=== PATIENT | female | born 1970 | race Caucasian/White ===

== ENCOUNTER → 2020-02-29 10:40 | Outpatient (CLI) | payer OTHER, SELFPAY ==
[2020-02-29 12:39] LABS: Absolute Lymphocyte Count 2.56 X10^3/uL (0.83-4.51); Absolute Neutrophil Count 4.3 X10^3/uL (2.0-7.7); Basophil# 0.05 X10^3/uL; Basophil% 0.7 % (0-1); Eosinophil# 0.18 X10^3/uL; Eosinophils% 2.3 % (0-5); Hematocrit 39.4 % (37-47); Hemoglobin 12.9 g/dL (12.0-15.0); Lymphocyte # 2.56 X10^3/ul (4.0); Lymphocyte % 33.4 % (19-41); Mean Corp Hgb Conc 32.7 g/dL (32-36); Mean Corpuscular Hgb 31.1 pg (27.0-32.0); Mean Corpuscular Volume 94.9 fL (81-99); Mean Platelet Vol. 11.3 fl (6.2-12.0); Monocyte# 0.61 X10^3/uL; NRBC Flagged by Analyzer 0 % (0-5); Neutrophil # 4.25 X10^3/uL (2.7-7.7); Neutrophil % 55.3 % (47-70); Platelet Count 285 K/mm3 (150-450); RBC Distribution Width CV 12.9 % (11.6-14.6); RBC Distribution Width SD 44.7 fl (35.1-43.9); Red Blood Count 4.15 M/mm3 (4.2-5.4); White Blood Count 7.7 K/mm3 (4.4-11.0)
[2020-02-29 13:06] LABS: ALB/GLOB Ratio 1.1 RATIO (0.9-2.4); AST(SGOT) 18 U/L (15-37); Alanine Aminotransfer ALT/SGPT 19 U/L (13-56); Albumin, Serum 3.9 g/dL (3.2-5.0); Alkaline Phosphatase 78 U/L (45-117); Anion Gap 1 (5-15); BUN 15 mg/dL (7-18); BUN/Creat Ratio 22.9 RATIO (10-20); Calcium,Total 9.4 mg/dL (8.5-10.1); Chloride 109 mmol/L (98-107); Cholesterol 181 mg/dL (200); Creatinine, Serum 0.66 mg/dL (0.55-1.02); EST Glomerular Filtration Rate 101 mL/min (>60); Est Glom Filt Rate - Afr Amer 122 mL/min (>60); Free T3 2.4 pg/mL (2.18-3.98); Globulin 3.7 g/dL (2.2-4.2); Glucose 86 mg/dL (74-106); High Density Lipoprotein 62 mg/dL; Magnesium 2.2 mg/dL (1.6-2.6); Potassium 4.3 mmol/L (3.5-5.1); Protein, Total 7.6 g/dL (6.4-8.2); Sodium Level 140 mmol/L (136-145); T4 Free Direct 0.92 ng/dL (0.76-1.46); Thyroid Stim Hormone (TSH) 1.31 uIU/mL (0.358-3.74); Triglycerides 53 mg/dL; Very Low Density Lipoprotein 11 mg/dL (5-40)
== END ==
PROVIDERS: PCP Family Medicine; Visit Provider Family Medicine
DX: Z00.00 Encounter for general adult medical examination without abnormal findings (principal); E78.5 Hyperlipidemia, unspecified
CPT/HCPCS: 36415; 80053; 80061; 83735; 84439; 84443; 84481; 85025

== ENCOUNTER → 2020-03-07 10:36 | Outpatient (CLI) | payer OTHER, SELFPAY | PROVIDERS: PCP Family Medicine; Referring Provider Family Medicine; Visit Provider Family Medicine | DX: R07.9 Chest pain, unspecified (principal); R00.2 Palpitations ==

== ENCOUNTER → 2020-03-21 06:47 | Outpatient (CLI) | payer OTHER, SELFPAY ==
--- NOTE | 2020-03-21 13:10 | STRESSREP_ITS ---
Stress Test Report Date: 03/21/20 Procedure: Pharmacologic stress nuclear imaging study Indications: [chest pain] Consent: Per the patient Procedure: The patient underwent pharmacologic (Regadenoson) evaluation with a peak heart rate of [107] beats per minute ([63]%predicted maximal heart rate) and a peak blood pressure of [142/80] mmHg. The baseline ECG demonstrated [sinus rhythm, left bundle branch block]. EKG during lexiscan infusion revealed no significant ischemic changes. EKG post infusion revealed no significant ischemic changes [There were no cardiac dysrhythmias pretest, during pharmacologic infusion, or recovery]. [There was no complaint of chest discomfort during pharmacologic infusion or recovery]. The examination was discontinued secondary to completion of protocol. Impression: 1. Lexiscan stress test test is negative for Lexiscan infusion induced EKG changes of ischemia. 2. Lexiscan stress test test[ is negative] for Lexiscan infusion induced chest pain. 3. Results of the nuclear portion of the test is as below Myocardial perfusion imaging study: Technique: The patient was injected with [11.3] millicuries of technetium 99m Cardiolite and subsequently rest SPECT Cardiolite nuclear imaging was obtained in the horizontal long, vertical long, and short axis views. The patient underwent pharmacologic (Regadenoson) evaluation. Please see above for details. The patient was injected with [33.9] millicuries of technetium 99m Cardiolite and subsequently stress SPECT Cardiolite nuclear imaging was obtained in the horizontal long, vertical long, and short axis views. A gated Cardiolite study at peak stress was obtained. Interpretation: Rest and stress SPECT Cardiolite nuclear imaging status post realignment, normalization, and attenuation correction demonstrate [normal myocardial radioisotope uptake]. Gated images reveal no significant regional wall motion abnormalities. The reported LVEF is 63%. Impression: 1. There is no evidence of significant ischemia or infarction. 2. Estimated ejection fraction is 63%. This note was generated with [employer] software. It may contain incorrect words, spelling, and punctuation that were not noted in checking the note before signing.
== END ==
PROVIDERS: PCP Family Medicine; Referring Provider Family Medicine; Visit Provider Family Medicine
DX: R00.2 Palpitations (principal); I44.7 Left bundle-branch block, unspecified; R07.9 Chest pain, unspecified
CPT/HCPCS: 78452; 93017; A9500; A4216; J2785

== ENCOUNTER → 2020-06-19 07:55 | Outpatient (CLI) | payer OTHER, SELFPAY ==
[2020-06-04 13:25] VITALS: BMI 26.8
--- NOTE | 2020-06-19 07:59 | ECHOCS_ITS ---
Reason For Study: Palpitations Procedure This was a 2D Doppler, Color Flow transthoracic echocardiogram. Contrast injection was performed. Exam performed in department. Left Ventricle Normal LV size. The estimated ejection fraction is 60 %. No evidence for diastolic dysfunction. No regional wall motion abnormalities noted. Right Ventricle Normal RV size. Normal systolic function. Atria Normal left atrium. Normal right atrium. No doppler evidence for ASD. Mitral Valve There is no mitral valve stenosis. Trivial mitral valve insufficiency. Tricuspid Valve There is no tricuspid stenosis. Trivial tricuspid valve insufficiency. Pulmonary artery systolic pressure is 25-30 mmHg. Aortic Valve Trisinus/trileaflet aortic valve. There is no aortic stenosis. No aortic valve insufficiency. Pulmonic Valve There is no pulmonic valvular stenosis. No pulmonic valve insufficiency. Great Vessels Normal aortic root. Pericardium/Pleural No pericardial effusion. Medication 22 gauge I.V. with prn adaptor inserted into right arm. Diluted definity 2ml given slow IV push to enhance endocardial definition. MMode/2D Measurements & Calculations LVIDd: 5.4 cm IVSd: 0.74 cm Ao root diam: 3.1 cm LVIDs: 3.0 cm LVPWd: 0.64 cm LA dimension: 3.6 cm RVDd: 3.0 cm FS: 44.1 % LAV(MOD-bp): 48.9 ml LA A4 area: 16.7 cm2 RA A4 area: 14.1 cm2 LAV(MOD-bp) Indexed: 27.2 ml/m2 LAV(MOD-sp2): 48.7 ml LAV(MOD-sp4): 46.6 ml Time Measurements MV dec time: 0.20 sec Doppler Measurements & Calculations MV E max javier: 101.4 cm/sec Lat Peak E' Javier: 10.7 cm/sec Med Peak E' Javier: 8.5 cm/sec MV A max javier: 71.7 cm/sec E/E' lat: 9.5 E/E' med: 11.9 MV E/A: 1.4 MV V2 max: 110.7 cm/sec MV P1/2t max javier: 111.7 cm/sec Ao V2 max: 176.2 cm/sec MV max P.9 mmHg MV P1/2t: 99.5 msec Ao max P.4 mmHg MV V2 mean: 57.2 cm/sec MV dec slope: 328.8 cm/sec2 MV mean P.6 mmHg MV V2 VTI: 38.3 cm MVA(P1/2t): 2.2 cm2 LV V1 max: 123.4 cm/sec PA V2 max: 93.4 cm/sec TR max javire: 241.1 cm/sec LV V1 max P.1 mmHg TR max P.3 mmHg Interpretation Summary The estimated ejection fraction is 60 %. No evidence for diastolic dysfunction. Trivial mitral valve insufficiency. Ordering Physician: Liza Dominguez Referring Physician: Roxanna Hennessy Performed By: Girish Lindsey RCS
== END ==
PROVIDERS: PCP Family Medicine; Referring Provider Specialist; Visit Provider Specialist
DX: I44.7 Left bundle-branch block, unspecified (principal); R00.2 Palpitations
CPT/HCPCS: 93306; Q9957; A4216; C8929

== ENCOUNTER → 2022-12-17 | Outpatient (CLI) | payer OTHER, SELFPAY ==
--- NOTE | 2022-12-17 07:01 | BI_ITS ---
MAMMOGRAPHY - BILATERAL SCREENING REASON FOR EXAM: Female, 52 years old. Routine annual screening examination. PERTINENT HISTORY: Mother with breast cancer. TECHNIQUE: Digital bilateral breast bhavya (3D mammographic acquisition) in the CC and MLO projections. 2-D mediolateral oblique (MLO) and craniocaudad (CC) views of both breasts were obtained. CAD: Full Field Digital Mammography with Computer Added Detection was performed. COMPARISON: Comparison is made with prior outside examination of November 11, 2020. FINDINGS: Breast Composition: The breasts are heterogeneously dense, which may obscure small masses. There are no dominant masses or suspicious calcifications. Stable benign-appearing right axillary lymph nodes. No other significant abnormalities are identified. There has been no significant change since the prior study. BI/SCRN MAMM (CAD)W/BHAVYA BILAT IMPRESSION: Stable bilateral screening mammogram. Yearly follow-up mammogram recommended. (A) ASSESSMENT CATEGORY: BIRADS Category 2: Benign. A letter regarding these results will be sent to the patient by the facility within 30 days. Approximately 10% of breast cancers are not detected by mammography. A normal mammogram should not delay biopsy of a clinically suspicious abnormality. [id number] Electronically Signed: Kentrell Olivas MD at 8:32 EDT ,
== END | disposition home or self-care (01) ==
LOC: OPBI 06:59
PROVIDERS: PCP Family Medicine; Referring Provider Family Medicine; Visit Provider Family Medicine
DX: Z12.31 Encounter for screening mammogram for malignant neoplasm of breast (principal); Z80.3 Family history of malignant neoplasm of breast
CPT/HCPCS: 77063; 77067

== ENCOUNTER → 2023-12-01 | Outpatient (CLI) | payer OTHER, SELFPAY ==
[2023-12-01 15:17] LABS: Absolute Lymphocyte Count 3.12 X10^3/uL (0.83-4.51); Absolute Neutrophil Count 5.3 X10^3/uL (2.0-7.7); Basophil# 0.08 X10^3/uL; Basophil% 0.9 % (0-1); Eosinophil# 0.19 X10^3/uL; Hematocrit 44.2 % (37-47); Hemoglobin 14.1 g/dL (12.0-15.0); Lymphocyte # 3.12 X10^3/ul (0.83-4.51); Lymphocyte % 33.6 % (19-41); Mean Corp Hgb Conc 31.9 g/dL (32-36); Mean Corpuscular Hgb 29.9 pg (27.0-32.0); Mean Corpuscular Volume 93.6 fL (81-99); Mean Platelet Vol. 11.5 fl (6.2-12.0); Monocyte# 0.54 X10^3/uL; Monocyte% 5.8 % (0-10); NRBC Flagged by Analyzer 0 % (0-5); Neutrophil # 5.33 X10^3/uL (2.7-7.7); Neutrophil % 57.4 % (47-70); Platelet Count 350 K/mm3 (150-450); RBC Distribution Width CV 13.4 % (11.6-14.6); RBC Distribution Width SD 46.1 fl (35.1-43.9); Red Blood Count 4.72 M/mm3 (4.2-5.4); White Blood Count 9.3 K/mm3 (4.4-11.0)
[2023-12-01 15:28] LABS: AST(SGOT) 23 U/L (15-37); Alanine Aminotransfer ALT/SGPT 31 U/L (13-56); Albumin, Serum 4.1 g/dL (3.2-5.0); Alkaline Phosphatase 92 U/L (45-117); Anion Gap 6 (5-15); BUN 14 mg/dL (7-18); BUN/Creat Ratio 16.5 RATIO (10-20); Chloride 110 mmol/L (98-107); Cholesterol 197 mg/dL (200); Creatinine, Serum 0.85 mg/dL (0.55-1.02); EST Glomerular Filtration Rate 74 mL/min (>60); Est Glom Filt Rate - Afr Amer 89 mL/min (>60); Globulin 4.1 g/dL (2.2-4.2); Glucose 90 mg/dL (74-106); High Density Lipoprotein 58 mg/dL; Potassium 4.5 mmol/L (3.5-5.1); Protein, Total 8.2 g/dL (6.4-8.2); Sodium Level 140 mmol/L (136-145); T4 Free Direct 1.09 ng/dL (0.76-1.46); Thyroid Stim Hormone (TSH) 1.48 uIU/mL (0.358-3.74); Triglycerides 146 mg/dL; Very Low Density Lipoprotein 29 mg/dL (5-40)
== END | disposition home or self-care (01) ==
LOC: BFHLAB 13:08
PROVIDERS: PCP Family Medicine; Referring Provider Family Medicine; Visit Provider Family Medicine
DX: Z00.00 Encounter for general adult medical examination without abnormal findings (principal); E78.5 Hyperlipidemia, unspecified
CPT/HCPCS: 80053; 80061; 84439; 84443; 85025

== ENCOUNTER 2024-01-16 21:33 | Inpatient (IN) | payer OTHER, SELFPAY ==
[2024-01-16 21:33] VITALS: BP 131/116; PULSE 150; RESP 22; TEMP 36.1; O2SAT 95; BMI 26.4
--- NOTE | 2024-01-16 21:47 | EKG12_ITS ---
Test Reason : DYSRHYTHMIA Blood Pressure : / mmHG Vent. Rate : 152 BPM Atrial Rate : 152 BPM P-R Int : 096 ms QRS Dur : 132 ms QT Int : 290 ms P-R-T Axes : 088 042 179 degrees QTc Int : 461 ms Critical Test Result: High HR Atrial flutter 2:1 Left ventricular hypertrophy with QRS widening and repolarization abnormality ( [place] product ) Cannot rule out Septal infarct , age undetermined Abnormal ECG Confirmed by NILSA CHAPPELL, DOMINGO ([id number]), development editor GABRIEL VALERO ([id number]) on 01/17/2024 10:08:39 AM Referred By: DELFINA Confirmed By:DOMINGO ASH MD
[2024-01-16] MEDS: Metoprolol Tartrate 5 MG/5 ML Vial IV ×2 (21:54→22:41)
[2024-01-16] MEDS: Ondansetron 4 MG/2 ML Vial IV (21:55)
[2024-01-16] MEDS: 0.9% Normal Saline (1000mL) 1,000 ML 1000 ML IV (21:55)
[2024-01-16 21:56] LABS: Absolute Lymphocyte Count 2.85 X10^3/uL (0.83-4.51); Absolute Neutrophil Count 6.7 X10^3/uL (2.0-7.7); Basophil# 0.07 X10^3/uL; Basophil% 0.7 % (0-1); Hematocrit 42.2 % (37-47); Hemoglobin 13.6 g/dL (12.0-15.0); Lymphocyte # 2.85 X10^3/ul (0.83-4.51); Lymphocyte % 28.2 % (19-41); Mean Corp Hgb Conc 32.2 g/dL (32-36); Mean Corpuscular Hgb 30.6 pg (27.0-32.0); Mean Corpuscular Volume 94.8 fL (81-99); Mean Platelet Vol. 10.8 fl (6.2-12.0); Monocyte# 0.38 X10^3/uL; Monocyte% 3.8 % (0-10); NRBC Flagged by Analyzer 0 % (0-5); Neutrophil # 6.68 X10^3/uL (2.7-7.7); Platelet Count 296 K/mm3 (150-450); RBC Distribution Width CV 14.4 % (11.6-14.6); RBC Distribution Width SD 49.7 fl (35.1-43.9); Red Blood Count 4.45 M/mm3 (4.2-5.4); White Blood Count 10.1 K/mm3 (4.4-11.0)
--- NOTE | 2024-01-16 22:03 | EX.ED.DYSGE1 ---
HPI History of Present Illness Chief Complaint: Palpitations Narrative Narrative: 53-year-old female past medical history of left bundle branch block and previous palpitations of unknown origin presents with multiple somatic complaints. She states that she has had a dry cough for at least a month. It has turned to today she is experiencing multiple episodes of posttussive emesis. She states that time she feels nauseated. She denies any chest pain, but becomes short of breath when she is coughing or into coughing jags. On occasion, she has a headache as well. She took an antitussive at around noon, 10 hours ago, and later on this evening at around 6, started feeling heart palpitations and a fast, pounding heart rate. [facility] Medical History (Updated 01/17/24 @ 00:12 by Tim Rose MD) Left bundle branch block (LBBB) Palpitations Home Medications ?Medication ?Instructions ?Recorded ?Last Taken ?Type NK 06/04/20 Unknown History Allergy/AdvReac Type Severity Reaction Status Date / Time No Known Allergies Allergy Verified 01/16/24 21:35 Family History Mother Breast cancer Father Myocardial infarction, Onset Age: 45 Sarcoidosis Brother Atrial fibrillation Surgical History History of section Social History Smoking Status: Never smoker alcohol intake: current alcohol intake frequency: a few times a month substance use type: does not use caffeine: Yes Type: coffee ROS ROS ED ROS Narrative Constitutional: No fever, no chills. HEENT: No sore throat. No neck pain. No loss of vision. No rhinorrhea. Cardiovascular: No chest pain. Positive palpitations. No pedal edema. Respiratory: 1 month of dry cough, occasional shortness of breath. Abdominal: No abdominal pain. Positive nausea. Posttussive emesis Genitourinary: No dysuria. No hematuria. Musculoskeletal: No myalgias. No arthralgias. Neurologic: Positive headaches. No dizziness. No lightheadedness. Skin: No rash. No change in color. Psychiatric: No depression. No anxiety. EXAM Physical Exam Narrative Exam Narrative: Afebrile. Vital signs noted. HEENT: Normocephalic. Atraumatic. PERRL, EOMI. Neck soft and supple. No point tenderness or step off. Cardiovascular: Positive tachycardia at around 150 bpm no murmurs, rubs, or gallops appreciated. Respiratory: Positive tachypnea. Lungs clear to auscultation bilaterally. Dry cough on examination. Gastrointestinal: Abdomen soft, nontender, with normoactive bowel sounds. No rebound or guarding. Neurological: Awake. Alert. Nonfocal, nonlateralizing. Skin: No rash. Normal color. No pallor. Musculoskeletal: No pedal edema. Full range of motion extremities. Const Vital Signs: 01/16/24 21:33 01/16/24 21:40 01/16/24 22:32 Temperature 97 F L 98.4 F Temperature Source Temporal Oral Pulse Rate 150 H 139 H Respiratory Rate 22 H 30 H Respiratory Effort Normal Non-Labored Blood Pressure 131/116 H 120/93 H Blood Pressure Mean 121 102 Pulse Ox 95 91 Oxygen Delivery Method Room Air Room Air Oxygen Flow Rate (L/min) 01/16/24 23:00 01/17/24 00:00 Temperature 97.8 F Temperature Source Oral Pulse Rate 137 H 135 H Respiratory Rate 27 H 24 H Respiratory Effort Blood Pressure 93/36 L 109/86 H Blood Pressure Mean 55 93 Pulse Ox 97 95 Oxygen Delivery Method Nasal Cannula Nasal Cannula Oxygen Flow Rate (L/min) 2 2 MDM MDM MDM Narrative Medical decision making narrative: The differential diagnosis is pulmonary embolism versus pneumonia versus atrial fibrillation. EKG obtained and interpreted by myself independently shows a left bundle branch block which is a wide-complex tachycardia at 152 bpm, no acute ST changes. There is a possibility that this could be atrial fibrillation/flutter. I reviewed her prior records, and her outpatient record as well. She has been seen by cardiology for follow-up with palpitations but was never diagnosed with atrial fibrillation. She had intermittent palpitations of unknown etiology in the past with longstanding left bundle branch block. She will be administered Lopressor and attempt to slow her rate. Comprehensive workup was pursued. I reviewed her laboratory work and she has normal white count of 10.1, hemoglobin 13.6, hematocrit 42.2, platelet count 296. Her D-dimer is elevated at 1.42. Hence, to limit radiation, I did not obtain a chest x-ray, but ordered a CTA of the chest in order to rule out pulmonary embolism. Her sodium is slightly low at 135, potassium 4.1, BUN of 20 with creatinine 0.93. Glucose is appropriately elevated at 130 with a normal anion gap of 8, AST slightly elevated at 46 which I think is nonspecific. Initial high-sensitivity troponin is 49. Initially, she was receiving a fluid bolus because of the CTA, but her BNP has returned at 1011. Urinalysis is negative for infection with 0-5 WBCs. I did order to 5 mg boluses of Lopressor, this seemed to drop her pressure transiently into the 90s and only lowered her heart rate into the 130s. Intermittently, she would drop her pulse ox as well. She was placed on 2 L nasal cannula. When she first arrived she wanted something for her cough and so she was administered Robitussin DM. She is having posttussive emesis and will continue to have a dry cough then vomited. I do not feel that Zofran would be effective for her nausea and vomiting because it is more posttussive than anything else. I reviewed the radiology report of the CTA which shows no evidence of pulmonary embolism. There are small bilateral pleural effusions and it is most consistent with pulmonary edema. Given her continued tachycardia and history of left bundle branch block, I discussed patient with Dr. Dominguez. He would like the patient placed on an amiodarone drip as Cardizem would tend to lower her blood pressure as well. I will add blood cultures and a lactic acid although she is not really flagging for sepsis currently. I will discuss patient with Dr. Anderson for admission. History & Record Review Discussion w/independent historian: Patient and Family Lab Data Attestation: I reviewed the patient's lab results. Labs: Laboratory Results - last 24 hr 01/16/24 01/16/24 01/16/24 21:45 22:43 23:45 WBC 10.1 RBC 4.45 Hgb 13.6 Hct 42.2 MCV 94.8 MCH 30.6 MCHC 32.2 RDW Std Deviation 49.7 H RDW Coeff of Sona 14.4 Plt Count 296 MPV 10.8 Immature Gran % (Auto) 0.300 Neut % (Auto) 66.0 Lymph % (Auto) 28.2 [place] % (Auto) 3.8 Eos % (Auto) 1.0 Baso % (Auto) 0.7 Absolute Neuts (auto) 6.7 Absolute Lymphs (auto) 2.85 Nucleated RBC % 0 D-Dimer Quant (PE/DVT) 1.42 H* Sodium 135 L Potassium 4.1 Chloride 106 Carbon Dioxide 21.0 Anion Gap 8 BUN 20 H Creatinine 0.93 Estim Creat Clear Calc 67.93 Est GFR (MDRD) Af Amer 81 Est GFR (MDRD) Non-Af 67 BUN/Creatinine Ratio 21.6 H Glucose 130 H Calcium 9.5 Total Bilirubin 1.20 H AST 46 H ALT 43 Alkaline Phosphatase 92 Troponin I High Sens 49 44 B-Natriuretic Peptide 1011.8 H Total Protein 7.4 Albumin 3.9 Globulin 3.5 Albumin/Globulin Ratio 1.1 Lipase 30 Urine Color Yellow Urine Clarity Sl. Cloudy Urine pH 5.0 Ur Specific [place] 1.030 Urine Protein 100 H Urine Glucose (UA) Normal Urine Ketones 50 H Urine Occult Blood 10 H Urine Nitrite Negative Urine Bilirubin 1 H Urine Urobilinogen 4 H Ur Leukocyte Esterase 25 H Urine RBC 0 SEEN Urine WBC 0-5 SEEN Ur Squamous Epith Cells 0 SEEN Urine Bacteria 2+ Hyaline Casts 5-10 SEEN Urine Mucus 1+ Radiography Diagnostic Testing: Clinical Impression(s) from Imaging Studies Chest CTA 01/16/24 22:43 IMPRESSION: No pulmonary embolism. Appearance most suggestive of edema. Small pleural effusions. Electronically Signed: Vito Vergara MD at 23:44 EDT Reading Location ID and State: [address] [place] [address] Tel , Service support , Discharge Plan Dx/Rx/DC Orders Clinical Impression: Bilateral pleural effusion, Left bundle branch block (LBBB), Atrial fibrillation with RVR, CHF (congestive heart failure), Post-tussive emesis Disposition Disposition: Acute Care Hospital [facility]
[2024-01-16 22:16] LABS: ALB/GLOB Ratio 1.1 RATIO (0.9-2.4); AST(SGOT) 46 U/L (15-37); Alanine Aminotransfer ALT/SGPT 43 U/L (13-56); Albumin, Serum 3.9 g/dL (3.2-5.0); Alkaline Phosphatase 92 U/L (45-117); Anion Gap 8 (5-15); BUN 20 mg/dL (7-18); BUN/Creat Ratio 21.6 RATIO (10-20); Calcium,Total 9.5 mg/dL (8.5-10.1); Chloride 106 mmol/L (98-107); Creatinine, Serum 0.93 mg/dL (0.55-1.02); EST Glomerular Filtration Rate 67 mL/min (>60); Est Glom Filt Rate - Afr Amer 81 mL/min (>60); Estimated Creatinine Clearance 67.93 ml/min; Globulin 3.5 g/dL (2.2-4.2); Glucose 130 mg/dL (74-106); Lipase 30 U/L (13-75); Potassium 4.1 mmol/L (3.5-5.1); Protein, Total 7.4 g/dL (6.4-8.2); Sodium Level 135 mmol/L (136-145); Troponin-I HS (w/2H Reflex) 49 pg/mL (3.0-54.0)
[2024-01-16 22:19] LABS: BNP,B-Type NATRIURETIC PEPTIDE 1011.8 pg/mL (0-100)
[2024-01-16] MEDS: guaiFENesin Dm 10 ML UDC PO (22:26)
[2024-01-16 22:32] VITALS: BP 120/93; PULSE 139; RESP 30; TEMP 36.9; O2SAT 91
[2024-01-16 22:42] LABS: D-Dimer Quantitative (DVT/PE) 1.42 FEU/ug/m (0.27-0.49)
--- NOTE | 2024-01-16 22:43 | CT_ITS ---
STUDY: CTA CHEST REASON FOR EXAM: Female, 53 years old. Elevated D-dimer RADIATION DOSAGE (If Supplied By Facility): CTDIvol = ( 9.26 ) mGy, DLP = ( 267.89 ) mGycm TECHNIQUE: The examination was performed with the intravenous administration of IV 100mL Isovue-370. Post-processing of the angiographic images was performed, with multiplanar reformation and 3D reconstruction. Individualized dose optimization techniques were used for this CT. COMPARISON: No relevant prior comparison study available FINDINGS: PULMONARY ARTERIES: Normal enhancement of the main pulmonary artery and right and left pulmonary arteries. Normal enhancement of the bilateral peripheral pulmonary arteries. There is no demonstrated pulmonary embolism. AORTA: Normal thoracic aorta and visualized great vessels. There is no demonstrated aortic dissection. MEDIASTINUM: Enlarged heart. No pericardial effusion. No mediastinal lymphadenopathy. Normal hilar regions. LUNGS/PLEURA: The central airways are patent. Diffuse bronchial wall thickening. Mild septal thickening at the lower lungs. No dense consolidation. No pulmonary nodule. Small bilateral pleural effusions. No pneumothorax. CHEST WALL: Normal chest wall structures. UPPER ABDOMEN: Normal visualized upper abdomen. OSSEOUS STRUCTURES: No acute or suspicious osseous abnormality. Mild degenerative changes of the spine. CT/CTA Chest W/WO Contrast IMPRESSION: No pulmonary embolism. Appearance most suggestive of edema. Small pleural effusions. Electronically Signed: Vito Vergara MD at 23:44 EDT ,
[2024-01-16 23:00] VITALS: BP 93/36; PULSE 137; RESP 27; TEMP 36.6; O2SAT 97
[2024-01-16 23:01] LABS: Red Blood Cells-Urine 0 SEEN /hpf (0-5); Squamous Epithelial Cells - UA 0 SEEN /hpf (5-10)
[2024-01-16 23:03] LABS: Color, Urine Yellow (Yellow); Glucose, Dipstick Normal (Normal); Ketone-Dipstick 50 mg/dl (Negative); Leukocyte Esterase-Dipstick 25 /ul (Negative); Nitrite-Dipstick Negative (Negative); Occult Blood-Urine 10 /ul (Negative); Protein-Dipstick 100 mg/dl (Negative); Urine Clarity Sl. Cloudy (Clear); Urine Urobilinogen 4 mg/dl (Normal)
[2024-01-16 23:06] LABS: Urine Bilirubin Dipstick 1 mg/dL (Negative)
[2024-01-16 23:08] LABS: Bacteria 2+ /hpf (None Seen); Hyaline Cast 5-10 SEEN /lpf (0-5)
[2024-01-16 23:09] LABS: Mucous, Urine 1+ /hpf (<or=2+); White Blood Cells 0-5 SEEN /hpf (0-5)
[2024-01-16 23:53] LABS: Reflex Troponin-HS? (from REC) Y
[2024-01-17] VITALS (32 sets, daily range): BP systolic 81–167; BP diastolic 61–131; PULSE 46–135; RESP 14–26; TEMP 35.7–36.7; O2SAT 88–100; BMI 27.0
--- NOTE | 2024-01-17 00:09 | HP.PCM.HOS_ITS ---
HPI - General General Date of Admission: 01/17/24 Date of Service: 01/17/24 Chief Complaint: Palpitations and persistent dry cough HPI Narrative JAYDE PARRY, is a 53 F who presented to [facility] ED on 01/17/2024 with palpitations and persistent dry cough. Saw patient at bedside in the ED, present. Patient was laying comfortably in bed, conversing normally, in no acute distress. Patient states she has had a dry cough for about 1 month. Seems that the cough is worse at night when she lays down. She has noticed some mild shortness of breath with exertion as well as episodes of coughing with exertion. Has been taking antitussives with minimal relief. Earlier today she started to feel palpitations with fast heart rate so she came to the ED for further evaluation. She notably has a history of palpitations and saw cardiology back in 2019. At that time she noted to cardiology that she was having palpitations about once a month at night. She had a normal echo and stress test at that time. She also had a 30-day event monitor that showed known left bundle branch block but no A-fib/flutter. No further cardiology follow-up was required after that. On arrival to the ED her heart rate was noted to be around 150. EKG was read by machine as sinus tachycardia with short [place] interval, along with LVH with QRS widening and repolarization abnormality. However, there was concern for possible ventricular tachycardia given wide QRS complex. ED physicians spoke with on-call cardiology who had higher suspicion for A-fib/flutter with LBBB. She was normotensive at that time. CTA chest showed no PE, did show suspected pulmonary edema with small pleural effusions. BNP 1011. She was satting in the low 90s on room air and was placed on 2 L nasal cannula with improvement to the mid 90s. She was given 2 doses of IV Lopressor, but this only lowered her heart rate into the 130s and dropped her pressure into the 90s systolic. She was then bolused with amiodarone and placed on an amiodarone drip per cardiology recommendations. On my encounter, heart rate was sustaining in the 130s. She was satting in the mid to high 90s on 2 L nasal cannula and breathing comfortably. She was normotensive. She denied feeling any palpitations currently. She did report continued dry cough that was slightly worse with laying flat. She otherwise denied any other acute concerns. CBC and BMP were unremarkable. Troponin trend 49 > 44. Had mildly elevated T. bili of 1.20 and mildly elevated AST of 46, LFTs were otherwise unremarkable. Will be admitted for further management. [facility] Medical History (Updated 01/17/24 @ 01:[address] Dayron Anderson, DO) Left bundle branch block (LBBB) Palpitations Home Medications ?Medication ?Instructions ?Recorded ?Last Taken ?Type NK 06/04/20 Unknown History Allergy/AdvReac Type Severity Reaction Status Date / Time No Known Allergies Allergy Verified 01/16/24 21:35 Family History Mother Breast cancer Father Myocardial infarction, Onset Age: 45 Sarcoidosis Brother Atrial fibrillation Surgical History History of section Social History Smoking Status: Never smoker alcohol intake: current alcohol intake frequency: a few times a month substance use type: does not use caffeine: Yes Type: coffee ROS Constitutional Constitutional: Reports fatigue; Denies chills or fever(s) Eyes Eyes: Denies change in vision Cardiovascular Cardiovascular: Reports dyspnea on exertion, orthopnea, palpitations and rapid heart rate; Denies chest pain, edema, lightheadedness or syncope Respiratory/Chest Respiratory/Chest: Reports cough; Denies productive cough, shortness of breath at rest or wheezing Gastrointestinal Gastrointestinal: Denies abdominal pain Genitourinary Genitourinary: Denies dysuria Musculoskeletal Musculoskeletal: Denies arthralgias or myalgias Neurologic Neurologic: Denies dizziness, focal weakness or headache(s) Vital Signs Vital Signs Vital Signs: 01/16/24 21:33 01/16/24 21:40 01/16/24 22:32 Temperature 97 F L 98.4 F Temperature Source Temporal Oral Pulse Rate 150 H 139 H Respiratory Rate 22 H 30 H Respiratory Effort Normal Non-Labored Blood Pressure 131/116 H 120/93 H Blood Pressure Mean 121 102 Pulse Ox 95 91 Oxygen Delivery Method Room Air Room Air Oxygen Flow Rate (L/min) 01/16/24 23:00 Temperature 97.8 F Temperature Source Oral Pulse Rate 137 H Respiratory Rate 27 H Respiratory Effort Blood Pressure 93/36 L Blood Pressure Mean 55 Pulse Ox 97 Oxygen Delivery Method Nasal Cannula Oxygen Flow Rate (L/min) 2 Weight Weight: 71.9 kg Body Mass Index (BMI) 26.4 Physical Exam Const alert, oriented x3, no apparent distress and average body habitus Constitutional Narrative: Pleasant middle-age female, healthy appearing, sitting up comfortably in bed, conversing normally, in no acute distress. General Appearance: cooperative and comfortable HEENT normocephalic, head/scalp atraumatic, hearing grossly normal bilaterally and nasal mucous membranes and turbinates normal Eyes PERRL, EOMs intact bilaterally and conjunctivae normal Neck full ROM Chest inspection of chest normal Resp normal respiratory effort and no use of accessory muscles Resp Narrative: Mildly decreased breath sounds bilaterally throughout with mild crackles noted, no wheezing noted. Cardio no murmurs and peripheral pulses 2+ throughout Cardio Narrative: Tachycardic, regular rhythm. GI normal to inspection, nondistended, normoactive bowel sounds, soft to palpation, non-tender and non-distended Back/Spine normal ROM Extremity normal to inspection, full ROM and no pedal edema Skin no rashes or lesions noted Neuro moves all extremities and no focal motor deficits Speech: speech normal Psych mental status grossly normal Results Lab / Micro Data 01/16/24 21:45 01/16/24 21:45 Labs: Laboratory Results - last 24 hr 01/16/24 21:45: WBC 10.1, RBC 4.45, Hgb 13.6, Hct 42.2, MCV 94.8, MCH 30.6, MCHC 32.2, RDW Std Deviation 49.7 H, RDW Coeff of Sona 14.4, Plt Count 296, MPV 10.8, Immature Gran % (Auto) 0.300, Neut % (Auto) 66.0, Lymph % (Auto) 28.2, [place] % (Auto) 3.8, Eos % (Auto) 1.0, Baso % (Auto) 0.7, Absolute Neuts (auto) 6.7, Absolute Lymphs (auto) 2.85, Nucleated RBC % 0, D-Dimer Quant (PE/DVT) 1.42 H*, Sodium 135 L, Potassium 4.1, Chloride 106, Carbon Dioxide 21.0, Anion Gap 8, BUN 20 H, Creatinine 0.93, Estim Creat Clear Calc 67.93, Est GFR (MDRD) Af Amer 81, Est GFR (MDRD) Non-Af 67, BUN/Creatinine Ratio 21.6 H, Glucose 130 H, Calcium 9.5, Total Bilirubin 1.20 H, AST 46 H, ALT 43, Alkaline Phosphatase 92, Troponin I High Sens 49, B-Natriuretic Peptide 1011.8 H, Total Protein 7.4, Albumin 3.9, Globulin 3.5, Albumin/Globulin Ratio 1.1, Lipase 30 01/16/24 22:43: Urine Color Yellow, Urine Clarity Sl. Cloudy, Urine pH 5.0, Ur Specific [place] 1.030, Urine Protein 100 H, Urine Glucose (UA) Normal, Urine Ketones 50 H, Urine Occult Blood 10 H, Urine Nitrite Negative, Urine Bilirubin 1 H, Urine Urobilinogen 4 H, Ur Leukocyte Esterase 25 H, Urine RBC 0 SEEN, Urine WBC 0-5 SEEN, Ur Squamous Epith Cells 0 SEEN, Urine Bacteria 2+, Hyaline Casts 5-10 SEEN, Urine Mucus 1+ Imaging Radiology Impression Chest CTA 01/16/24 22:43 IMPRESSION: No pulmonary embolism. Appearance most suggestive of edema. Small pleural effusions. Electronically Signed: Vito Vergara MD at 23:44 EDT Reading Location ID and State: [facility] / [place] Tel , Service support , Assessment & Plan Assessment/Plan (1) Atrial fibrillation with RVR: (2) Hypoxia: (3) CHF (congestive heart failure): PLAN: Plan Patient is a 53-year-old female who presented [facility] ED on 01/17/2024 with palpitations and persistent dry cough. 1. Suspected new onset A-fib/flutter, concern for tachycardia mediated cardiomyopathy with mild hypoxia ? Admit under inpatient status to PCU. Cardiology consulted. Highest suspicion is for atrial flutter as rate appears to be fairly regular in the 130s to low 150s and has remained persistent despite IV Lopressor and amiodarone bolus with drip. Have concern for tachycardia mediated cardiomyopathy given elevated BNP, pulmonary edema with small pleural effusions and mild hypoxia. Echo ordered. Continue cardiac monitoring. Continue amiodarone drip. [id number] score of 1 (female), will hold on anticoagulation at this time. 2. Mildly elevated LFTs ? T. bili 1.20, AST 46 on admit. Suspect secondary to mild hepatic vascular congestion from volume overload. Patient denies any abdominal pain or discomfort. Will hold on any abdominal imaging for now. Follow-up a.m. LFTs. 3. Abnormal UA ? UA with 25 leukocyte esterase, negative nitrites, 2+ bacteria. Patient denies any UTI symptoms and is afebrile with normal WBC count and generally noninfectious appearing. Urine culture pending. Will hold on antibiotics for now. DVT prophylaxis: Lovenox CODE STATUS: Full code, verified Expected disposition: Home, 2 to 3 days Total clinical time spent by myself addressing the patient's medical issues, reviewing all the data, and collaborating with patient's care team: 55 minutes. Charges/Coding Visit Charges Inpatient E&M: 66043 Init Hosp L2
[2024-01-17 00:11] LABS: Troponin-I HS 44 pg/mL (3.0-54.0)
[2024-01-17] MEDS: Amiodarone 150 MG in Dextrose 5%-Water (100mL Bag) 100 ML 600 MG IV BOLUS (00:25)
[2024-01-17] MEDS: Amiodarone 360 MG in Dextrose 5% Viaflo Bag 192.8 ML 33.3 MG CONT INF (00:35)
[2024-01-17 00:41] LABS: Lactic Acid 1.6 mmol/L (0.4-1.9)
--- NOTE | 2024-01-17 01:38 | ECHOD_ITS ---
Reason For Study: Afib/Flutter Procedure This was a 2D Doppler, Color Flow transthoracic echocardiogram. Exam performed portable in patient room. Left Ventricle Normal LV size. Severe global left ventricular systolic dysfunction. The left ventricular ejection fraction is 20 %. Right Ventricle Normal RV size. Normal systolic function. Atria The left atrium is mildly enlarged. The right atrium is mildly enlarged. Mitral Valve Normal mitral valve. Mild-Moderate (1-2+) anteriorly directed mitral valve insufficiency. Tricuspid Valve Normal tricuspid valve. Mild to moderate (1-2+) tricuspid valve insufficiency. Pulmonary artery systolic pressure is 38 mmHg. Aortic Valve Trisinus/trileaflet aortic valve. Trivial aortic valve insufficiency. Pulmonic Valve Normal pulmonic valve. Great Vessels Normal aortic root. The pulmonary artery is normal size. Inferior vena cava collapse with respiration. Pericardium/Pleural No pericardial effusion. MMode/2D Measurements & Calculations LVIDd: 5.2 cm IVSd: 1.0 cm Ao root diam: 3.5 cm LVIDs: 4.3 cm LVPWd: 0.86 cm LA dimension: 4.4 cm RVDd: 4.0 cm FS: 16.5 % LAV(MOD-bp): 68.9 ml LA A4 area: 22.8 cm2 RA A4 area: 20.6 cm2 LAV(MOD-bp) Indexed: 38.5 ml/m2 LAV(MOD-sp2): 58.6 ml LAV(MOD-sp4): 69.7 ml TAPSE: 1.3 cm Doppler Measurements & Calculations MV E max jerry: 104.8 cm/sec MV V2 max: 122.3 cm/sec Ao V2 max: 148.4 cm/sec MV max P.0 mmHg Ao max P.9 mmHg MV V2 mean: 59.6 cm/sec Ao V2 mean: 106.8 cm/sec MV mean P.8 mmHg Ao mean P.2 mmHg MV V2 VTI: 25.7 cm Ao V2 VTI: 30.4 cm AV (velocity ratio): 0.81 LV V1 max: 116.5 cm/sec MR max jerry: 431.9 cm/sec PA V2 max: 59.3 cm/sec LV V1 max P.4 mmHg MR max P.7 mmHg PA max PG (full): 0.99 mmHg LV V1 mean P.9 mmHg MR mean jerry: 358.0 cm/sec LV V1 mean: 78.0 cm/sec MR mean P.0 mmHg LV V1 VTI: 24.6 cm MR VTI: 147.4 cm TR max jerry: 276.3 cm/sec TR max P.5 mmHg ECHO/Echo Complete Interpretation Summary Normal LV size. Severe global left ventricular systolic dysfunction. The left ventricular ejection fraction is 20 %. Mild-Moderate (1-2+) anteriorly directed mitral valve insufficiency. Pulmonary artery systolic pressure is 38 mmHg. Ordering Physician: Dayron Anderson Referring Physician: Roxanna Hennessy Performed By: Girish Lindsey RCS
[2024-01-17] MEDS: proCHLORPERazine 10 MG/2 ML Vial 5 MG IV (01:53)
[2024-01-17 06:22] LABS: Hematocrit 39.6 % (37-47); Hemoglobin 12.6 g/dL (12.0-15.0); Mean Corp Hgb Conc 31.8 g/dL (32-36); Mean Corpuscular Hgb 30.1 pg (27.0-32.0); Mean Corpuscular Volume 94.5 fL (81-99); Mean Platelet Vol. 11.4 fl (6.2-12.0); Platelet Count 232 K/mm3 (150-450); RBC Distribution Width CV 14.2 % (11.6-14.6); RBC Distribution Width SD 49.5 fl (35.1-43.9); Red Blood Count 4.19 M/mm3 (4.2-5.4)
[2024-01-17] MEDS: Amiodarone 360 MG in Dextrose 5% Viaflo Bag 192.8 ML 16.7 MG CONT INF (06:37)
[2024-01-17 06:56] LABS: AST(SGOT) 56 U/L (15-37); Alanine Aminotransfer ALT/SGPT 47 U/L (13-56); Albumin, Serum 3.3 g/dL (3.2-5.0); Alkaline Phosphatase 79 U/L (45-117); Anion Gap 11 (5-15); BUN 21 mg/dL (7-18); BUN/Creat Ratio 29.2 RATIO (10-20); Calcium,Total 9.1 mg/dL (8.5-10.1); Chloride 107 mmol/L (98-107); Creatinine, Serum 0.72 mg/dL (0.55-1.02); EST Glomerular Filtration Rate 89 mL/min (>60); Est Glom Filt Rate - Afr Amer 108 mL/min (>60); Estimated Creatinine Clearance 88.75 ml/min; Globulin 3.1 g/dL (2.2-4.2); Glucose 130 mg/dL (74-106); Potassium 4.1 mmol/L (3.5-5.1); Protein, Total 6.4 g/dL (6.4-8.2); Sodium Level 136 mmol/L (136-145)
--- NOTE | 2024-01-17 08:07 | PCM.CONS.C ---
Assessment & Plan Assessment/Plan (1) Atrial fibrillation with RVR: PLAN: She does present with atrial fibrillation with rapid ventricular response rate. She does have an underlying left bundle branch block. The exact precipitating factor is unclear at this time she does have a chads Vascor of 1. She therefore ideally does not need anticoagulation but this may be helpful if we are trying to cardiovert her. I will recommend that we start her on intravenous diltiazem for rate control Will ultimately prefer to switch her to a beta-susan. An echocardiogram should be performed to assess her ventricular function. With her underlying left bundle branch block I would not be surprised if she has a tachycardia induced cardiomyopathy. Depending on the results further recommendations will be made. (2) CHF (congestive heart failure): PLAN: She has been complaining of her chronic cough and natruretic peptide level is elevated. I suspect that she does have a cardiomyopathy of unknown etiology. This will be evaluated with the echocardiogram. Will continue Lasix at this time. Thank you for allowing me to participate in the care of your patient. Please don't hesitate to call if any issues arise. HPI Consult Data Date of Consult: 01/17/24 HPI Narrative HPI Narrative: JAYDE PARRY, is a 53 F who presents with palpitations. She says that she has been under tremendous amount of stress recently. She does have a history of palpitations in the past and also has a left bundle branch block which is underlying. She presented and was noted to be in atrial fibrillation with rapid ventricular response rate. She denies any dizziness or diaphoresis she has had some nausea as well as a cough which has been difficult to control. Cardiology was called to evaluate her because of the atrial fibrillation flutter. She was placed on intravenous amiodarone. [facility] Medical History Left bundle branch block (LBBB) Palpitations Home Medications ?Medication ?Instructions ?Recorded ?Last Taken ?Type NK 06/04/20 Unknown History Allergy/AdvReac Type Severity Reaction Status Date / Time No Known Allergies Allergy Verified 01/16/24 21:35 Family History Mother Breast cancer Father Myocardial infarction, Onset Age: 45 Sarcoidosis Brother Atrial fibrillation Surgical History History of section Social History Smoking Status: Never smoker alcohol intake: current alcohol intake frequency: a few times a month substance use type: does not use caffeine: Yes Type: coffee ROS Constitutional Constitutional: Denies fever(s) or weight loss Eyes Eyes: Reports systems reviewed and no addt'l complaints, except as documented ENT HEENT: Reports systems reviewed and no addt'l complaints, except as documented Cardiovascular Cardiovascular: Reports palpitations; Denies chest pain at rest, chest pain with activity, dyspnea at rest, dyspnea on exertion, edema or paroxysmal nocturnal dyspnea Respiratory/Chest Respiratory/Chest: Denies dyspnea on exertion, productive cough, shortness of breath at rest or shortness of breath with exertion Gastrointestinal Gastrointestinal: Denies change in bowel habits, nausea, vomiting or weight changes Genitourinary Genitourinary: Denies difficulty urinating Musculoskeletal Musculoskeletal: Denies joint stiffness or muscle weakness Integumentary Integumentary: Denies lesions Neurologic Neurologic: Denies dizziness or syncope Psychiatric Psychiatric: Denies anxiety Endocrine Endocrinology: Denies excessive sweating or fatigue Hematologic/Lymphatic Hematologic/Lymphatic: Denies anemia Allergic/Immunologic Allergic/Immunologic: Denies seasonal rhinorrhea Physical Exam Const alert, oriented x3 and no apparent distress General Appearance: cooperative HEENT hearing grossly normal bilaterally Head and Scalp: atraumatic Eyes EOMs intact bilaterally Neck General: normal visual inspection Chest inspection of chest normal and palpation of chest normal Resp normal respiratory effort Auscultation: clear to auscultation bilaterally Cardio S1 normal heart sound and S2 normal heart sound Jugular Venous Distention: JVD Rhythm: abnormal rhythm irregularly irregular GI normal to inspection, nondistended, normoactive bowel sounds Extremity normal capillary refill and no pedal edema Peripheral Pulses: Yes pulses 2+ throughout and femoral pulses present Skin no rashes or lesions noted Neuro oriented x3 and CN's II-XII intact bilaterally Psych Appearance: grossly normal and appropriate Risk Stratification Risk Stratification Applicable: No Objective Data Vital Signs: Vital Signs Temp Pulse Resp BP Pulse Ox O2 Del Method O2 Flow Rate 97 F L 86 19 H 111/81 H 98 Nasal Cannula 2 01/17/24 06:00 01/17/24 06:40 01/17/24 06:37 01/17/24 06:40 01/17/24 07:39 01/17/24 07:39 01/17/24 07:39 Oxygen Flow Rate (L/min) 2 Oxygen Delivery Method Nasal Cannula Weight: 162 lb 7.691 oz Body Mass Index (BMI) 27.0 Intake & Output: Intake and Output for Last 24 Hours 01/15/24 01/16/24 01/17/24 23:59 23:59 23:59 Intake Total 1000 / 1000 303.00 / 303.00 Output Total 75 / 75 Balance 1000 / 1000 228.00 / 228.00 Lab / Micro Data 01/17/24 05:43 01/17/24 05:43 Labs: Laboratory Results - last 24 hr 01/16/24 21:45: WBC 10.1, RBC 4.45, Hgb 13.6, Hct 42.2, MCV 94.8, MCH 30.6, MCHC 32.2, RDW Std Deviation 49.7 H, RDW Coeff of Sona 14.4, Plt Count 296, MPV 10.8, Immature Gran % (Auto) 0.300, Neut % (Auto) 66.0, Lymph % (Auto) 28.2, [place] % (Auto) 3.8, Eos % (Auto) 1.0, Baso % (Auto) 0.7, Absolute Neuts (auto) 6.7, Absolute Lymphs (auto) 2.85, Nucleated RBC % 0, D-Dimer Quant (PE/DVT) 1.42 H*, Sodium 135 L, Potassium 4.1, Chloride 106, Carbon Dioxide 21.0, Anion Gap 8, BUN 20 H, Creatinine 0.93, Estim Creat Clear Calc 67.93, Est GFR (MDRD) Af Amer 81, Est GFR (MDRD) Non-Af 67, BUN/Creatinine Ratio 21.6 H, Glucose 130 H, Calcium 9.5, Total Bilirubin 1.20 H, AST 46 H, ALT 43, Alkaline Phosphatase 92, Troponin I High Sens 49, B-Natriuretic Peptide 1011.8 H, Total Protein 7.4, Albumin 3.9, Globulin 3.5, Albumin/Globulin Ratio 1.1, Lipase 30 01/16/24 22:43: Urine Color Yellow, Urine Clarity Sl. Cloudy, Urine pH 5.0, Ur Specific [place] 1.030, Urine Protein 100 H, Urine Glucose (UA) Normal, Urine Ketones 50 H, Urine Occult Blood 10 H, Urine Nitrite Negative, Urine Bilirubin 1 H, Urine Urobilinogen 4 H, Ur Leukocyte Esterase 25 H, Urine RBC 0 SEEN, Urine WBC 0-5 SEEN, Ur Squamous Epith Cells 0 SEEN, Urine Bacteria 2+, Hyaline Casts 5-10 SEEN, Urine Mucus 1+ 01/16/24 22:45: Magnesium 2.0 01/16/24 23:45: Troponin I High Sens 44 01/17/24 00:00: Urine Color Cancelled, Urine Clarity Cancelled, Urine pH Cancelled, Ur Specific [place] Cancelled, U Specif Grav (Refrac) Cancelled, Urine Protein Cancelled, Urine Glucose (UA) Cancelled, Urine Ketones Cancelled, Urine Occult Blood Cancelled, Urine Nitrite Cancelled, Urine Bilirubin Cancelled, Urine Urobilinogen Cancelled, Ur Leukocyte Esterase Cancelled, Urine RBC Cancelled, Urine WBC Cancelled, Ur Squamous Epith Cells Cancelled, Ur Transition Epith Cell Cancelled, Ur Renal Epithelial Cell Cancelled, Calcium Oxalate Crystal Cancelled, Uric Acid Crystals Cancelled, Triple Phos Crystals Cancelled, Other Crystals Cancelled, Amorphous Sediment Cancelled, Urine Bacteria Cancelled, Hyaline Casts Cancelled, Fine Granular Casts Cancelled, Coarse Granular Casts Cancelled, Waxy Casts Cancelled, RBC Casts Cancelled, WBC Casts Cancelled, Urine Mucus Cancelled, Urine Trichomonas Cancelled, Urine Yeast Cancelled 01/17/24 00:05: Lactic Acid 1.6 01/17/24 05:43: WBC 9.0, RBC 4.19 L, Hgb 12.6, Hct 39.6, MCV 94.5, MCH 30.1, MCHC 31.8 L, RDW Std Deviation 49.5 H, RDW Coeff of [place]ona 14.2, Plt Count 232, MPV 11.4, Sodium 136, Potassium 4.1, Chloride 107, Carbon Dioxide 18.0 L, Anion Gap 11, BUN 21 H, Creatinine 0.72, Estim Creat Clear Calc 88.75, Est GFR (MDRD) Af Amer 108, Est GFR (MDRD) Non-Af 89, BUN/Creatinine Ratio 29.2 H, Glucose 130 H, Calcium 9.1, Total Bilirubin 1.90 H, Direct Bilirubin 0.90 H, AST 56 H, ALT 47, Alkaline Phosphatase 79, Total Protein 6.4, Albumin 3.3, Globulin 3.1 Cardiology Labs/Tests 01/16/24 21:45: WBC 10.1, RBC 4.45, Hgb 13.6, Hct 42.2, MCV 94.8, MCH 30.6, MCHC 32.2, Plt Count 296, MPV 10.8, Immature Gran % (Auto) 0.300, Neut % (Auto) 66.0, Lymph % (Auto) 28.2, [place] % (Auto) 3.8, Eos % (Auto) 1.0, Baso % (Auto) 0.7, Absolute Neuts (auto) 6.7, Nucleated RBC % 0, D-Dimer Quant (PE/DVT) 1.42 H*, Sodium 135 L, Potassium 4.1, Chloride 106, Carbon Dioxide 21.0, Anion Gap 8, BUN 20 H, Creatinine 0.93, Est GFR (MDRD) Af Amer 81, Est GFR (MDRD) Non-Af 67, BUN/Creatinine Ratio 21.6 H, Glucose 130 H, Calcium 9.5, Total Bilirubin 1.20 H, B-Natriuretic Peptide 1011.8 H 01/16/24 22:43: Urine Color Yellow, Urine Clarity Sl. Cloudy, Urine pH 5.0, Ur Specific [place] 1.030, Urine Protein 100 H, Urine Glucose (UA) Normal, Urine Ketones 50 H, Urine Occult Blood 10 H, Urine Nitrite Negative, Urine Bilirubin 1 H, Urine Urobilinogen 4 H, Ur Leukocyte Esterase 25 H, Urine RBC 0 SEEN, Urine WBC 0-5 SEEN 01/16/24 22:45: Magnesium 2.0 01/17/24 00:00: Urine Color Cancelled, Urine Clarity Cancelled, Urine pH Cancelled, Ur Specific [place] Cancelled, U Specif Grav (Refrac) Cancelled, Urine Protein Cancelled, Urine Glucose (UA) Cancelled, Urine Ketones Cancelled, Urine Occult Blood Cancelled, Urine Nitrite Cancelled, Urine Bilirubin Cancelled, Urine Urobilinogen Cancelled, Ur Leukocyte Esterase Cancelled, Urine RBC Cancelled, Urine WBC Cancelled 01/17/24 00:05: Lactic Acid 1.6 01/17/24 05:43: WBC 9.0, RBC 4.19 L, Hgb 12.6, Hct 39.6, MCV 94.5, MCH 30.1, MCHC 31.8 L, Plt Count 232, MPV 11.4, Sodium 136, Potassium 4.1, Chloride 107, Carbon Dioxide 18.0 L, Anion Gap 11, BUN 21 H, Creatinine 0.72, Est GFR (MDRD) Af Amer 108, Est GFR (MDRD) Non-Af 89, BUN/Creatinine Ratio 29.2 H, Glucose 130 H, Calcium 9.1, Total Bilirubin 1.90 H, Direct Bilirubin 0.90 H Rhythm: EKG: ECHO: Stress Test: Cardiac Cath: PCI: CT Surgery: Holter monitor: EPS: PPM: CXR: Chest CT Scan: Radiography Diagnostic Testing: Radiology Impression Chest CTA 01/16/24 22:43 IMPRESSION: No pulmonary embolism. Appearance most suggestive of edema. Small pleural effusions. Electronically Signed: Vito Vergara MD at 23:44 EDT Reading Location ID and State: [facility] / [place] Tel , Service support ,
--- NOTE | 2024-01-17 08:40 | NURSING ---
Echo in progress
[2024-01-17] MEDS: Diltiazem 125 MG in Dextrose 5%-Water (100mL Bag) 100 ML CONT INF (09:11)
[2024-01-17] MEDS: Furosemide 20 MG/2 ML VIAL IV ×2 (09:12→17:52)
[2024-01-17] MEDS: APIXABAN 5 MG TABLET PO ×2 (09:15→21:10)
[2024-01-17] MEDS: dilTIAZem 25 MG/5 ML Vial 20 MG IV BOLUS (09:15)
[2024-01-17] MEDS: 0.9% Saline Lock 10 ML Syringe IV ×2 (09:18→15:34)
--- NOTE | 2024-01-17 10:58 | CASEMGMT ---
MARY MILLER Assessment Face to Face with patient for initial transition planning/care coordination assessment. MARY MILLER introduced self and role at [facility], pt voices understanding. Pt is A&Ox4 and is resting comfortably in bed and is calm. Care providers, pharmacy, and demographics verified. Admitting dx: New onset AFib with RVR PCP: Roxanna Hennessy Specialists: Denies. Pt states that her mother follows with Dr. Peguero and Also a animal rescuer at [facility] and states that she will have access to a animal rescuer if needed. Denies list at this time. Preferred Pharmacy: [facility] Insurance: MMO Prescription Benefit: Yes LNOK: Mike Wade (H) Living Arrangements: Pt lives with her in a 2 story home with 2 steps to enter ADLs/IADLs: Ind. Current 6-Click is 24. Transportation: Self, DME: Denies HHC/SNF: Denies Pt?s goal: Home Plan: Home with a new anticoagulant Rx. Pt states that she is on Eliquis here. Pt denies further home going needs and states feeling safe returning home with her at time of DC. CM to follow pricing for new Rx. Kim Crum RN, CM
--- NOTE | 2024-01-17 12:29 | EKG12_ITS ---
Test Reason : IRREGURLAR Blood Pressure : / mmHG Vent. Rate : 051 BPM Atrial Rate : 051 BPM P-R Int : 180 ms QRS Dur : 140 ms QT Int : 608 ms P-R-T Axes : 032 064 191 degrees QTc Int : 560 ms Critical Test Result: Long QTc Sinus bradycardia Non-specific intra-ventricular conduction block Minimal voltage criteria for LVH, may be normal variant ( Jc product ) T wave abnormality, consider anterolateral ischemia Abnormal ECG Confirmed by DOMINGO ASH MD ([id number]), video effects editor GABRIEL VALERO ([id number]) on 01/19/2024 9:59:48 AM Referred By: Confirmed By:DOMINGO ASH MD
[2024-01-17] MEDS: Carvedilol 6.25 MG Tablet PO ×2 (15:30→21:10)
--- NOTE | 2024-01-17 15:33 | PN.HOSP_ITS ---
Hospitalist Note Patient was seen and examined briefly today, her echocardiogram resulted today as showing a 20% ejection fraction, Mild pulmonary hypertension also. Patient converted to normal sinus rhythm today, I talked with cardiology about her care plan, and they advised stopping the Cardizem drip and placing her on a beta- susan. I had started her on two 8-hour Lasix this morning but due to low blood pressure I decided to back off to twice daily. Patient remains on amiodarone drip, cardiology would like this to finish out and be discontinued.
[2024-01-17] MEDS: Ondansetron 4 MG/2 ML Vial IV (15:34)
[2024-01-17] MEDS: Potassium Chloride Oral Tablet 20 MEQ PO (17:52)
[2024-01-18 02:00] VITALS: BP 101/63; PULSE 58; RESP 15; TEMP 36.8; O2SAT 97
[2024-01-18 08:00] VITALS: BP 110/89; PULSE 67; RESP 12; TEMP 36.4; O2SAT 97
--- NOTE | 2024-01-18 08:56 | PCM.PN.CARD ---
Subjective Subjective Patient seen and evaluated. Doing well today. Converted back to sinus rhythm. Objective Data Vital Signs: Vital Signs Temp Pulse Resp BP Pulse Ox O2 Del Method O2 Flow Rate 98.2 F 58 L 15 101/63 97 Nasal Cannula 2 01/18/24 02:00 01/18/24 02:00 01/18/24 02:00 01/18/24 02:00 01/18/24 02:00 01/18/24 07:21 01/18/24 07:21 Oxygen Flow Rate (L/min) 2 Oxygen Delivery Method Nasal Cannula Weight: 162 lb 7.691 oz Body Mass Index (BMI) 27.0 Intake & Output: Intake and Output for Last 24 Hours 01/16/24 01/17/24 01/18/24 23:59 23:59 23:59 Intake Total 1000 / 1000 521.67 / 521.67 Output Total 75 / 75 Balance 1000 / 1000 446.67 / 446.67 Lab / Micro Data 01/17/24 05:43 01/17/24 05:43 Cardiology Labs/Tests Rhythm: EKG: ECHO: Stress Test: Cardiac Cath: PCI: CT Surgery: Holter monitor: EPS: PPM: CXR: Chest CT Scan: Radiography Diagnostic Testing: Radiology Impression Echocardiogram 01/17/24 01:38 Interpretation Summary Normal LV size. Severe global left ventricular systolic dysfunction. The left ventricular ejection fraction is 20 %. Mild-Moderate (1-2+) anteriorly directed mitral valve insufficiency. Pulmonary artery systolic pressure is 38 mmHg. Ordering Physician: Dayron Anderson Referring Physician: Roxanna Hennessy Performed By: Girish Lindsey RCS Physical Exam Const alert, oriented x3 and no apparent distress General Appearance: cooperative HEENT hearing grossly normal bilaterally Head and Scalp: atraumatic Eyes EOMs intact bilaterally Neck General: normal visual inspection Chest inspection of chest normal and palpation of chest normal Resp normal respiratory effort Auscultation: clear to auscultation bilaterally Cardio S1 normal heart sound and S2 normal heart sound Jugular Venous Distention: JVD Rhythm: abnormal rhythm irregularly irregular GI normal to inspection, nondistended, normoactive bowel sounds Extremity normal capillary refill and no pedal edema Peripheral Pulses: Yes pulses 2+ throughout and femoral pulses present Skin no rashes or lesions noted Neuro oriented x3 and CN's II-XII intact bilaterally Psych Appearance: grossly normal and appropriate Assessment & Plan Assessment/Plan (1) Atrial fibrillation with RVR: PLAN: She does present with atrial fibrillation with rapid ventricular response rate. She does have an underlying left bundle branch block. She converted back to sinus rhythm. Plan to be to continue anticoagulation Continue carvedilol Her [id number] score is 2 (2) CHF (congestive heart failure): PLAN: She has been complaining of her chronic cough and natruretic peptide level is elevated. The echocardiogram did confirm a cardiomyopathy with an estimated ejection fraction of 25%. It is unclear whether this is tachycardia mediated or idiopathic. Will continue with beta-susan Continued diuretics Add an DONNA or Arni Add an SGLT2 inhibitor Follow-up as outpatient and consider cardiac MRI Above discussed with patient and hospitalist. Thank you for allowing me to participate in the care of your patient. Please don't hesitate to call if any issues arise.
[2024-01-18 09:01] VITALS: O2SAT 97
[2024-01-18] MEDS: Empagliflozin 10 MG Tablet PO (09:24)
[2024-01-18] MEDS: Furosemide 40 MG Tablet PO (09:24)
[2024-01-18] MEDS: Carvedilol 6.25 MG Tablet PO (09:24)
[2024-01-18] MEDS: APIXABAN 5 MG TABLET PO (09:24)
--- NOTE | 2024-01-18 09:43 | DCINST_ITS ---
Discharge Instructions Diet Discharge Diet: No restrictions Activity Discharge Activity: Return to Normal Activity Weight Bearing Status: Full weight bearing Follow Up Care Test Results: Test results from this visit will be discussed in further detail at your follow- up appointment, if applicable. Discharge Plan Admission Admit Date/Time: 01/17/24 00:09 Primary Reason for Your Visit: CHF, a-fib Attending Provider: Agusto French Primary Care Provider: Roxanna Hennessy Consulting Providers: Igor Peguero; Dayron Anderson Instructions Additional Instructions / Restrictions: Start on Lisinopril 5mg 1/2 daily, increase after one week to one daily if blood pressure above 90 Please buy a blood pressure machine Do not take Ibuprofen or Alleve while on Eliquis, Tylenol is ok to take Discharge Orders/Prescriptions Prescriptions: New furosemide 40 mg Tablet 40 mg PO DAILY Qty: 30 0RF carvedilol 6.25 mg Tablet 6.25 mg PO BID Qty: 60 0RF Eliquis 5 mg Tablet 5 mg PO BID Qty: 60 0RF Jardiance 10 mg Tablet 10 mg PO DAILY Qty: 30 0RF potassium chloride 10 mEq tablet extended release 20 meq PO DAILY Qty: 60 0RF lisinopril 5 mg tablet 5 mg PO DAILY Qty: 30 0RF Rx Instructions: !/2-1 daily hold if blood pressure below 90 Referrals / Follow Up: Igor Peguero MD [Med Staff - Active Staff] - See Referral Note (in two weeks- call for appointment, tell the office you saw Dr. Peguero in the hospital) Roxanna Hennessy DO [Primary Care Provider] - See Referral Note (this week) Disposition Disposition (needs filled in before D/C Order can be placed): Home, Self Care
--- NOTE | 2024-01-18 09:57 | PCM.DC.SUM ---
Providers Date of Admission: 01/17/24 Date of Discharge: 01/18/24 Primary Care Physician: Dr. Roxanna Henenssy, Consultations 01/17/24 06:34 Consult: Cardiology Routine Consulting Provider: Igor Peguero Reason for Consult: new onset afib w/ rvr EMERGENT Consult: No MD Notified: Yes Date Notified: 01/17/24 Time Notified: 00:12 Method of Notification: Text Reason For Visit: NEW ONSET AFIB W/ RVR Diagnosis Discharge Diagnosis (1) Atrial fibrillation with RVR: Status: Acute Code(s): I48.91 - Unspecified atrial fibrillation (2) CHF (congestive heart failure): Status: Acute Code(s): I50.9 - Heart failure, unspecified Plan 1. New onset A-fib with RVR #2 cardiomyopathy-etiology unclear #3 acute systolic congestive heart failure #4 mild pulmonary hypertension Medications at Discharge Home Medications apixaban 5 mg tablet (Eliquis) 5 mg PO BID #60 tabs 01/18/24 carvedilol 6.25 mg tablet 6.25 mg PO BID #60 tabs 01/18/24 empagliflozin 10 mg tablet (Jardiance) 10 mg PO DAILY #30 tabs 01/18/24 furosemide 40 mg tablet 40 mg PO DAILY #30 tabs 01/18/24 lisinopril 5 mg tablet 5 mg PO DAILY #30 tabs 01/18/24 potassium chloride 10 mEq tablet,extended release 20 meq (2 x 10 mEq) PO DAILY #60 tabs 01/18/24 Hospital Course Operations None Procedures 2-D Echocardiogram Summary of Care Provided Minutes Spent on Discharge: 31 Hospital Course: This 53-year-old white female was seen in the emergency room at [facility] with complaints of palpitation and persistent dry cough. He stated she had a dry cough for approximately a month, she stated the cough is worse when she lays down. Patient said she also noted some shortness of breath with exertion as well as episodes of coughing with exertion. Today she started to feel palpitations with a fast heart rate so she came to the ER for evaluation. On arrival to the emergency room, heart rate was noted to be around 150, EKG was showing a fib with a left bundle branch block with a rate of approximately 150. Labs showed a BNP of 1011, CTA of the chest showed no PE but did show suspected pulmonary edema with small bilateral pleural effusions. Patient was given 2 doses of IV Lopressor, it only lowered her heart rate into the 130s and her blood pressure dropped into the 90s systolic. She was then given IV amiodarone and placed on amiodarone drip after consultation by phone with cardiology. Patient was admitted to PCU, echocardiogram was obtained which showed a left ventricular ejection fraction of 20% along with severe global left ventricular systolic dysfunction. Pulmonary artery pressure was 38 mm, patient was given IV Lasix for systolic heart failure, she was seen in consultation by cardiology, her medications were adjusted by cardiology. Patient originally was placed on an amiodarone drip along with IV Cardizem, patient converted to normal sinus rhythm and both these IV agents were ultimately stopped and the patient was placed on a beta-susan. On 01/18/2024, patient was seen and examined: On examination she appeared in good health and spirits, she does not appear to be in any distress. Vital signs as documented. Skin warm and dry and without overt rashes. Neck without JVD, thyroid appears normal, trachea is midline, neck is supple. Lungs clear, normal air movement was noted. Heart exam notable for regular rhythm, normal sounds and absence of murmurs, rubs or gallops. Abdomen unremarkable and without evidence of organomegaly, masses, or abdominal aortic enlargement, bowel sounds are present in all 4 quadrants, no abdominal tenderness was noted. Extremities nonedematous, no cyanosis was noted, no clubbing was noted. Neuro: Cranial nerves II through XII are grossly intact, no focal motor deficits were noted, sensation to light touch and pinprick is intact, motor exam 5/5 throughout. Psych: Patient is alert and oriented x3, she does not appear anxious or depressed, she does not appear agitated. Patient appears to be stable for discharge home on 01/18/2024. Weight / BMI Weight Weight: 73.7 kg Body Mass Index (BMI) 27.0 ABG / Lab / Microbiology Data 01/17/24 05:43 01/17/24 05:43 Microbiology: Microbiology 01/16/24 22:43 Urine, Random Urine Culture - Preliminary Culture exhibits no growth. D/C Instructions Discharge Diet: No restrictions Weight Bearing Status: Full weight bearing Meaningful Use Info Meaningful Use Meaningful Use Diagnoses (Choose all that apply): CHF CHF DONNA/ARB ordered at discharge?: Yes Documented LVEF (%): 20 Ischemic Stroke Statin Dosing Therapy Reference: STATIN DOSE THERAPY REFERENCE: * Patients > 75 years receive moderate or high dose statin therapy. * Patients 75 years or YOUNGER should receive HIGH intensity statin dose unless contraindicated. You will be required to document reason for non-treatment if statin daily dose does not meet guidelines. HIGH DOSE STATIN THERAPY DAILY Atorvastatin > than or = to 40 mg Rosuvastatin > than or = to 20 mg Amlodipine + Atorvastatin > than or = to 2.5/40 mg Ezetimibe + Simvastatin 10/80 mg Simvastatin 80mg Discharge Plan Admission Admit Date/Time: 01/17/24 00:09 Primary Reason for Your Visit: CHF, a-fib Attending Provider: Agusto French Primary Care Provider: Roxanna Hennessy Consulting Providers: Igor Peguero; Dayron Anderson Instructions Additional Instructions / Restrictions: Start on Lisinopril 5mg 1/2 daily, increase after one week to one daily if blood pressure above 90 Please buy a blood pressure machine Do not take Ibuprofen or Alleve while on Eliquis, Tylenol is ok to take Discharge Orders/Prescriptions Prescriptions: New furosemide 40 mg Tablet 40 mg PO DAILY Qty: 30 0RF carvedilol 6.25 mg Tablet 6.25 mg PO BID Qty: 60 0RF Eliquis 5 mg Tablet 5 mg PO BID Qty: 60 0RF Jardiance 10 mg Tablet 10 mg PO DAILY Qty: 30 0RF potassium chloride 10 mEq tablet extended release 20 meq PO DAILY Qty: 60 0RF lisinopril 5 mg tablet 5 mg PO DAILY Qty: 30 0RF Rx Instructions: !/2-1 daily hold if blood pressure below 90 Referrals / Follow Up: Igor Peguero MD [Med Staff - Active Staff] - See Referral Note (in two weeks-call for appointment, tell the office you saw Dr. Peguero in the hospital) Roxanna Hennessy DO [Primary Care Provider] - See Referral Note (this week) Disposition Disposition (needs filled in before D/C Order can be placed): Home, Self Care Charges/Coding Visit Charges Inpatient E&M: 97544 Disch Hosp >30min
--- NOTE | 2024-01-18 10:33 | PHA.DC_ITS ---
Pharmacy [facility] has performed discharge medication reconciliation and counseling for this patient. 1. APIXABAN 5MG PO BID 2. CARVEDILOL 6.25MG PO BID 3. EMPAGLIFLOZIN 10MG PO DAILY 4. FUROSEMIDE 40MG PO DAILY 5. LISINOPRIL 5MG PO DAILY 6. POTASSIUM CHLORIDE 10MEQ PO DAILY The patient's discharge medication list was reviewed for discrepancies and discrepancies were resolved. The patient was counseled on the following discharge medications and changes in medications for homegoing were reviewed. The Reason for Use, instructions for use, and potential side effects were reviewed for all new medications. The patient's questions regarding all of their medications were answered. The patient was able to verbally demonstrate an understanding of their discharge medications. Patient counseled by instructor adjunct pharmacy technicianDestini. Medications at Discharge Home Medications apixaban 5 mg tablet (Eliquis) 5 mg PO BID #60 tabs 01/18/24 carvedilol 6.25 mg tablet 6.25 mg PO BID #60 tabs 01/18/24 empagliflozin 10 mg tablet (Jardiance) 10 mg PO DAILY #30 tabs 01/18/24 furosemide 40 mg tablet 40 mg PO DAILY #30 tabs 01/18/24 lisinopril 5 mg tablet 5 mg PO DAILY #30 tabs 01/18/24 potassium chloride 10 mEq tablet,extended release 20 meq (2 x 10 mEq) PO DAILY #60 tabs 01/18/24
--- NOTE | 2024-01-18 10:36 | CASEMGMT ---
Patient has order for discharge. Patient discharging on Eliquis and Jardiance, RN CM called [facility] to inquire about copay. Per [facility], no copay for either medications. RN CM updated patient, patient had no further needs at discharge. Patient had no further questions or concerns.
[2024-01-18 10:49] VITALS: BP 110/89; PULSE 67; RESP 14; TEMP 36.9; O2SAT 97
== END 2024-01-18 10:52 | disposition home or self-care (01) | DRG 308 ==
LOC: ED 01-17 00:12 → PCU 01-17 07:40
PROVIDERS: Admitting Provider Hospitalist; Emergency Provider Emergency Medicine; PCP Family Medicine; Visit Provider Internal Medicine
DX: I48.91 Unspecified atrial fibrillation (principal); I50.21 Acute systolic (congestive) heart failure; J90 Pleural effusion, not elsewhere classified; I27.20 Pulmonary hypertension, unspecified; I42.9 Cardiomyopathy, unspecified; I47.29 Other ventricular tachycardia; I44.7 Left bundle-branch block, unspecified
CPT/HCPCS: 36415; 71275; 80048; 80053; 80076; 81001; 83605; 83690; 83735; 83880; 84484; 85025; 85027; 85379; 87040; 87086; 93005; 93306; 94762; 99285; J7030; Q9957; Q9967; A4216; J1940; J2405

== ENCOUNTER 2024-04-23 17:16 | Emergency (ER) | payer OTHER, SELFPAY ==
[2024-04-23 17:16] VITALS: BP 163/98; PULSE 59; RESP 16; TEMP 36; O2SAT 98; BMI 23.6
--- NOTE | 2024-04-23 18:49 | EDS_ITS ---
HPI History of Present Illness HPI Narrative: 54-year-old female history of A-fib on Eliquis. Was breaking a bamboo stick at home and lacerated the palmar aspect of her right index finger. This occurred about 2 hours ago. She had been unable to get the bleeding stopped. Came in to have it evaluated. Chief Complaint: Laceration Informant: spouse/S.O. Occured/Mechanism Mechanism/Context: Yes injury Onset/Context/Timing Onset: Hours Context: Sudden Onset Timing: Continuous Quality of Pain: Sharp Current Severity: Mild Maximum Severity: Mild Narrative Narrative: 54-year-old female laceration right index finger palmar aspect when she was breaking a bamboo stick occurred about 2 hours ago. Tetanus up-to-date. Tetanus Immunization: <5 years Prior similar symptoms: No Recent Illness/Hospitalization: No PFSH [facility] Medical History Pleural effusion, right On anticoagulant therapy Typical atrial flutter Acute systolic CHF (congestive heart failure) Nonischemic cardiomyopathy Paroxysmal atrial fibrillation Left bundle branch block (LBBB) Palpitations Home Medications ?Medication ?Instructions ?Recorded ?Last Taken ?Type apixaban 5 mg tablet (Eliquis) 5 mg PO BID #60 tabs 01/18/24 Unknown Rx empagliflozin 10 mg tablet 10 mg PO DAILY #30 tabs 01/18/24 Unknown Rx (Jardiance) amiodarone 200 mg tablet 200 mg PO DAILY 01/28/24 Unknown History metoprolol tartrate 25 mg tablet 12.5 mg PO BID changed from Coreg 01/28/24 Unknown History d/t a-fib RVR at [facility] 01/20/24 norethindrone 1.5 mg-ethinyl 1 tab PO DAILY 01/28/24 Unknown History estradiol 30 mcg(21)/iron 75 mg(7) tablet spironolactone 25 mg tablet 12.5 mg PO DAILY 01/28/24 Unknown History Allergy/AdvReac Type Severity Reaction Status Date / Time No Known Allergies Allergy Verified 04/23/24 17:18 Family History Mother Breast cancer Atrial fibrillation Father Myocardial infarction, Onset Age: 45 Sarcoidosis CAD (coronary artery disease) Brother Atrial fibrillation Surgical History History of left heart catheterization (01/20/24) History of section Social History Smoking Status: Never smoker alcohol intake: current alcohol intake frequency: a few times a month substance use type: does not use caffeine: Yes Type: coffee ROS ROS ED ROS Narrative Denies recent illness. Constitutional Constitutional ED: Denies fever(s) Eyes Eyes: Denies blurry vision ENT ENT ED: Denies ear pain Cardiovascular Cardiovascular: Denies chest pain Respiratory/Chest Respiratory/Chest: Denies cough Gastrointestinal Gastrointestinal: Denies abdominal pain Genitourinary Genitourinary ED: Denies dysuria Musculoskeletal Musculoskeletal: Denies back pain Integumentary Denies abscess Neurologic Neurologic: Denies headache(s) Psychiatric Psychiatric: Denies anxiety Endocrine Endocrinology: Denies cold intolerance Hematologic/Lymphatic Hematologic/Lymphatic: Denies easy bleeding Allergic/Immunologic Allergic/Immunologic ED: Denies mouth swelling EXAM Physical Exam Narrative Exam Narrative: 54-year-old female vital signs are stable afebrile. H EENT exam unremarkable. Lungs clear. Heart regular rhythm rate about 60 no murmur. Chest wall nonte nder. Abdomen soft nontender. Moving all 4 extremities. Neurovascular intact. Dressing on her right index finger. She has a laceration of palmar aspect of her right distal index finger. Active bleeding. Neurovascular intact. Full range of motion. No foreign body or infection. Will need repaired. Const Vital Signs: 04/23/24 17:16 Temperature 96.8 F L Temperature Source Temporal Pulse Rate 59 L Respiratory Rate 16 Blood Pressure 163/98 H Blood Pressure Mean 119 Pulse Ox 98 Oxygen Delivery Method Room Air Positive well nourished and well developed; Negative for cachectic, contractures or unkempt General Appearance ED: well developed and NAD; Negative for unkempt, cachectic, contractures, cyanotic or diaphoretic Nutritional Appearance: Negative for cachectic HEENT Reports moist mucous membranes normocephalic and atraumatic; Negative for trauma or tenderness Eyes PERRL and EOMs intact bilaterally Neck full ROM and supple General: Negative for tenderness Chest Wall inspection of chest normal and palpation of chest normal Resp normal respiratory effort and clear to auscultation bilaterally Cardio regular rate, regular rhythm, S1 normal heart sound, S2 normal heart sound and no murmurs GI non-tender, non-distended and no masses Auscultation: normoactive bowel sounds Palpation: soft; Negative for tender, guarding or rebound tenderness present Back/Spine no CVA tenderness General Back: Negative for CVA tenderness Cervical Spine: Negative for cervical spine tenderness Thoracic Spine / Upper Back: Negative for thoracic spinal tenderness Lumbar Spine / Lower Back: Negative for lumbar spinal tenderness Extremity normal to inspection and full ROM Extremity Narrative: Laceration distal palmar aspect of right index finger. General Extremety ED: Negative for edema General Extremity: Negative for edema Neuro oriented x3, CN's II-XII intact bilaterally, moves all extremities, no focal motor deficits and no sensory deficits noted Sensorium / Orientation: alert, oriented to person, oriented to place and oriented to time; Negative for orientation impaired or lethargic Motor Exam: strength 5/5 throughout Psych mental status grossly normal Appearance: Negative for unkempt Attitude: No agitated Mood & Affect: Negative for depressed, anxious or tearful Skin General Skin Exam: Negative for petechiae Lesions: no lesions Rashes: no rashes Trauma: laceration MDM MDM MDM Narrative Medical decision making narrative: 54-year-old female laceration right index finger. Laceration goes across the skin crease palmar aspect of the DIP. She has full flexion extension. Normal touch sensation. Oozing of blood. No pulsatile bleeding. I do not see any signs of tendon or joint involvement. No signs of nerve or arterial involvement. Approximately 1-1/2 inches in length. Procedures Lacerations Right index finger laceration repair:: Length: 1.5 in Depth: Sub Q Shape: Linear Prep: Frederick Laceration repair: Digital block, Irrigated, Lidocaine, Nerve block and Skin sutures Number of Sutures/Mike: 5 Suture Information: Ethilon, Simple and 4-0 Comment: Right index finger laceration. Palmar aspect. Skin crease DIP. Proximately 1/2 inches in length. Normal flexion extension. Normal touch sensation. Oozing of blood. No pulsatile bleeding. After digital block good anesthetic. I do not see any tendon, nerve, artery or joint involvement. Closed using 5 simple interrupted 4-0 Ethilon sutures. Proper hemostasis wound closure is obtained. Patient was instructed on wound care and suture removal. Discharge Plan Triage Chief Complaint: Laceration ED Provider: Ken Coburn Dx/Rx/DC Orders Clinical Impression: Finger laceration, History of atrial fibrillation, Chronic anticoagulation Instructions: ED Laceration, Hand: All Closures Prescriptions: No Action Eliquis 5 mg Tablet 5 mg PO BID Qty: 60 0RF Jardiance 10 mg Tablet 10 mg PO DAILY Qty: 30 0RF amiodarone 200 mg tablet 200 mg PO DAILY metoprolol tartrate 25 mg tablet 12.5 mg PO BID norethindrone-e.estradiol-iron 1.5 mg-30 mcg (21)/75 mg (7) tablet 1 tab PO DAILY spironolactone 25 mg tablet 12.5 mg PO DAILY Primary Care Provider: Roxanna Hennessy Referrals: Roxanna Hennessy, [Primary Care Provider] - 10-14 Days suture removal Activity Restrictions/Additional Instructions: Hold your Eliquis tonight. Restart tomorrow. Ice and elevate to decrease pain and swelling. Stitches out in 10 to 14 days. Watch for any signs of infection such as fever, redness, fever or streaks of seen return. You may leave our dressing on for 4 to 5 days. If it stays dry and clean if it is dirty or wet needs to be changed. Keep this clean and dry. You can shower do not let it soak in any dirty water. Dried off thoroughly. While our dressing is on just keep it covered in the shower in a plastic bag. Once the dressing is changed clean daily with soap and water apply antibiotic ointment. Print Language: Bengali Disposition Disposition: Home, Self Care
[2024-04-23] MEDS: Lidocaine 1% (20 ml mdv) 20 ML Vial 10 ML INFILT (19:44)
[2024-04-23 19:45] VITALS: BP 118/72; PULSE 79; RESP 16; TEMP 36.6; O2SAT 100
== END 2024-04-23 19:46 | disposition home or self-care (01) ==
PROVIDERS: Emergency Provider Emergency Medicine; PCP Family Medicine; Visit Provider Emergency Medicine
DX: S61.210A Laceration without foreign body of right index finger without damage to nail, initial encounter (principal); I50.21 Acute systolic (congestive) heart failure; I48.0 Paroxysmal atrial fibrillation; W26.8XXA Contact with other sharp object(s), not elsewhere classified, initial encounter; Y93.89 Activity, other specified; Y92.009 Unspecified place in unspecified non-institutional (private) residence as the place of occurrence of the external cause; Z79.01 Long term (current) use of anticoagulants; Z79.84 Long term (current) use of oral hypoglycemic drugs; Z79.899 Other long term (current) drug therapy
CPT/HCPCS: 12002; 99283